=== PATIENT | male | born 1950 | race Caucasian/White ===

== ENCOUNTER 2018-11-23 07:59 | Emergency (ER) | payer OTHER ==
[~2018-11-23] VITALS: Ht 177.8 cm; Wt 95.3 kg
[~2018-11-23 07:59] MED LIST: CLON0.1D7 TD; DILT180C68 PO; HYDR25TA4 PO
[2018-11-23 08:10] VITALS: BP 148/90
[2018-11-23] MEDS ORDERED: methylPREDNISolone SOD SUCC 125 MG/2 ML VL IM ONE (08:30)
[2018-11-23] MEDS ORDERED: cefTRIAXone SOD 1,000 MG VL IM ONE (08:30)
[2018-11-23] MEDS ORDERED: diphenhdrAMINE HCL 25 MG CAP PO ONE (09:00)
== END 2018-11-23 09:50 | disposition home or self-care (01) ==
LOC: EDBD 07:59 → ER 07:59
DX: H05.011 Cellulitis of right orbit (principal); I10 Essential (primary) hypertension; M10.9 Gout, unspecified; Z79.899 Other long term (current) drug therapy
CPT/HCPCS: 70486; 96372; 99284; J0696; J2930

== ENCOUNTER 2020-01-21 14:31 | Inpatient (IN) | payer OTHER, MEDICAID ==
[~2020-01-21] VITALS: Ht 177.8 cm; Wt 83.1 kg
[2020-01-21] MEDS ORDERED: SODIUM CHLORIDE 0.9% 500 ML IV ONE (14:41)
[2020-01-21] MEDS ORDERED: CLINDAMYCIN 600MG IV 50 ML IV ONE (14:45)
[2020-01-21 16:26] LABS: Basophils # (auto) 0 10 ^3/uL (0-0.2); Basophils % (auto) 0.3 % (0.0-2.0); Eosinophils # (auto) 0 10 ^3/uL (0-0.8); Eosinophils % (auto) 0.2 % (0.0-7.0); Hematocrit 29.9 % (41.0-53.0); Hemoglobin 9.9 g/dL (13.5-17.5); Lymphocytes # (auto) 0.7 10 ^3/uL (0.4-5.4); Lymphocytes % (auto) 6.5 % (10.0-50.0); Mean Corpuscular Hemoglobin 29.7 pg (28.0-32.0); Mean Corpuscular Hgb Conc. 33.2 g/dL (32.0-36.0); Mean Corpuscular Volume 89.4 fL (80.0-100.0); Monocytes % (auto) 9.9 % (0.0-12.0); Neutrophils # (auto) 8.6 10 ^3/uL (1.6-8.6); Neutrophils % (auto) 83.1 % (37.0-80.0); Platelet Count (auto) 161 10^3/uL (140-450); Red Blood Cells 3.35 10^6/uL (4.5-5.90); Red Cell Distribution Width 15.2 % (11.8-14.3); White Blood Cell 10.4 10^3/uL (4.4-10.8)
[2020-01-21 16:42] LABS: Albumin 2.7 g/dL (3.4-5.0); BUN/Creatinine Ratio 19.5; Calcium 8.1 mg/dL (8.5-10.1); Potassium 3.5 mmol/L (3.5-5.1)
[2020-01-21 16:45] LABS: Bilirubin, Total 0.5 mg/dL (0.2-1.0); Total Protein 6.3 g/dL (6.4-8.2)
[2020-01-21] MEDS ORDERED: LORazepam 0.5 MG TAB PO PRN (17:30)
[2020-01-21] MEDS ORDERED: METOCLOPRAMIDE HCL 5MG/ml INJ 2ml VIAL IV PRN (17:30)
[2020-01-21] MEDS ORDERED: HYDROmorphone HCL 2 MG/ML VL IV PRN (17:30)
[2020-01-21] MEDS ORDERED: DOCUSATE SOD 100 MG CAP PO PRN (17:30)
[2020-01-21] MEDS ORDERED: MORPHINE SULF INJ 2 MG/ML SYRINGE 1ML IV PRN (17:30)
[2020-01-21] MEDS ORDERED: NITROGLYCERIN 0.4 MG SL TAB SL PRN (17:30)
[2020-01-21] MEDS: SODIUM CHLORIDE 0.9% 1,000 ML IV SCH (17:30)
[2020-01-21 18:17] LABS: Triglycerides 86 mg/dL (< 150)
[2020-01-21 18:21] LABS: Cholesterol 77 mg/dL (< 200); HDL Cholesterol 16 mg/dL (40-59); LDL Cholesterol 49 mg/dL (< 100)
[2020-01-21] MEDS ORDERED: VANCOMYCIN PER PHARMACY 0 MG IV SCH (19:45)
[2020-01-21 20:30] VITALS: BP 137/70
--- NOTE | 2020-01-21 20:30 | NUR ---
Telemetry admit from [facility],ELEUTERIO Tavera admitted to Telemetry unit. Patient oriented to Ivett bliss RN, unit, room, bed, and unit policies regarding patient care and visiting hours. Patient now on continuous telemetry monitoring, tele box #[id number] and telemetry reading on arrival to unit is SINUS RHYTHM AT 89BPM. Patient weighed by bedscale and encouraged to call if they need something. All questions and concerns addressed, patient verbalized understanding. PATIENT IS A/OX4, ABLE TO ANSWER ALL QUESTIONS APPROPRIATELY. IV IN PLACE TO LEFT AC 20G, INTACT AND PATENT. REDNESS AND SWELLING NOTED TO RIGHT LOWER EXTREMITY. NO OPEN AREAS NOTED.
[2020-01-21] MEDS: PIPERACILLIN-TAZOB 3.375GM 100 ML IV SCH (21:15)
[2020-01-21] MEDS: MORPHINE SULF INJ 2 MG/ML SYRINGE 1ML IV PRN (21:16)
--- NOTE | 2020-01-21 21:16 | NUR ---
PAIN PATIENT STATES HE IS HAVING 7/10 PAIN TO HIS RIGHT LEG. EDUCATED PATIENT ON AVAILABLE PAIN MEDICATION MORPHINE. PATIENT STATES HE WOULD LIKE TO TRY MORPHINE TO HELP HIS PAIN LEVEL. MORPHINE ADMINISTERED ORDERED. PATIENT TOLERATED WELL. WILL REASSESS PAIN LEVEL IN 30 MINUTES.
[2020-01-21] MEDS ORDERED: FUROSEMIDE 20 MG/2 ML VIAL IV ONE (21:45)
[2020-01-21] MEDS ORDERED: VANCOMYCIN 1GM/250ML 250 ML IV ONE (21:45)
[2020-01-21] MEDS ORDERED: hydrALAZINE HCL 20 MG/ML VL IV PRN (21:45)
[2020-01-21] MEDS ORDERED: DEXTROSE (50%) 50ML SYRG IV PRN (21:45)
--- NOTE | 2020-01-21 21:46 | NUR ---
PAIN REASSESSMENT PATIENT STATES HIS PAIN LEVEL IS NOW DOWN TO 3/10 AND HE IS "COMFORTABLE". WILL CONTINUE TO MONITOR
[2020-01-21] MEDS: InsuLIN REG 1unit/0.01ml Soln (100units/ml) SC SCH (22:00)
[2020-01-21] MEDS: AMIODARONE HCL 200 MG TAB PO SCH (22:00)
[2020-01-21] MEDS: APIXABAN 5 MG TAB PO SCH (22:25)
[2020-01-21] MEDS: ACCU-CHEK COMFORT CURVE STRIP VI SCH (22:26)
--- NOTE | 2020-01-21 22:30 | NUR ---
MED REFUSALS PATIENT REFUSED 2200 SCHEDULED AMIODARONE. PATIENT STATES HE ONLY TAKES THIS MEDICATION ONCE DAILY AND HAS ALREADY TAKEN IT EARLIER TODAY. WILL UPDATE MED REC. PATIENT ALSO REFUSED INSULIN. POC GLUCOSE 207.PATIENT STATES, "I'M NOT DIABETIC AND I'VE NEVER TAKEN INSULIN BEFORE". PATIENT ALSO STATES, "I JUST ATE A SANDWICH AND HAD SOME JUICE". PATIENT REFUSES INSULIN PER SLIDING SCALE
[2020-01-21 22:58] VITALS: BP 137/70
[2020-01-21 23:16] LABS: Urine Bacteria FEW /hpf (None Seen); Urine Blood Negative /uL (Negative); Urine Hyaline Cast FEW /lpf (0 - 2); Urine Specific Gravity 1.017 (1.001-1.035); Urine WBC <1 /hpf (0 - 3)
[2020-01-21 23:21] LABS: Alcohol, Urine < 3.0 mg/dL (0-5); Amphetamine Screen, Urine NEGATIVE (NEGATIVE); Barbiturate Scree,Urine NEGATIVE (NEGATIVE); Benzodiazephine Screen, Urine NEGATIVE (NEGATIVE); Cannabinoid Screen, Urine NEGATIVE (NEGATIVE); Cocaine Screen, Urine NEGATIVE (NEGATIVE); Opiate Scree,Urine POSITIVE (NEGATIVE); Phencyclidine Screen, Urine NEGATIVE (NEGATIVE)
[2020-01-21] MEDS ORDERED: HCTZ25T PO (23:38)
[2020-01-21] MEDS ORDERED: DILT1CAP77 PO (23:38)
[2020-01-21] MEDS ORDERED: RIVA20TA PO (23:38)
[2020-01-21] MEDS ORDERED: LABE100T4 PO (23:39)
[2020-01-21] MEDS ORDERED: CLON0.2T PO (23:39)
[2020-01-21] MEDS ORDERED: COLC1TAB3 PO (23:40)
[2020-01-21] MEDS ORDERED: AMIO200T33 PO (23:40)
--- NOTE | 2020-01-22 00:55 | NUR ---
WOUND PHOTO PHOTO OF RIGHT LOWER EXTREMITY CELLULITIS TAKEN FOR REFERENCE. NO OPEN AREAS NOTED.
[2020-01-22] MEDS: MORPHINE SULF INJ 2 MG/ML SYRINGE 1ML IV PRN ×5 (01:25→18:32)
--- NOTE | 2020-01-22 01:25 | NUR ---
PAIN PATIENT REQUESTS MORPHINE FOR PAIN LEVEL 7/10 TO RIGHT LEG. MORPHINE ADMINISTERED ORDERED BY MD. PATIENT TOLERATED WELL. WILL REASSESS PAIN LEVEL IN 30 MINUTES.
--- NOTE | 2020-01-22 01:55 | NUR ---
PAIN REASSESSMENT PATIENT RATES PAIN LEVEL AT 2/10. PATIENT RESTING COMFORTABLY IN BED, WILL CONTINUE TO MONITOR
[2020-01-22] MEDS: PIPERACILLIN-TAZOB 3.375GM 100 ML IV SCH ×2 (03:07→09:57)
[2020-01-22 05:00] VITALS: BP 109/68
--- NOTE | 2020-01-22 05:35 | NUR ---
PAIN PATIENT REQUESTS MORPHINE FOR PAIN LEVEL OF 7/10 TO RIGHT LOWER EXTREMITY. MORPHINE ADMINISTERED ORDERED BY MD. PATIENT TOLERATED WELL. WILL REASSESS PAIN IN 30 MINUTES
--- NOTE | 2020-01-22 06:05 | NUR ---
PAIN REASSESSMENT PATIENT RATES PAIN AT 4/10 NOW, STATES PAIN HAS IMPROVED AND HE IS COMFORTABLE
[2020-01-22] MEDS: FUROSEMIDE 20 MG/2 ML VIAL IV SCH ×2 (06:19→18:21)
[2020-01-22] MEDS: ACCU-CHEK COMFORT CURVE STRIP VI SCH ×4 (06:22→21:42)
[2020-01-22] MEDS: InsuLIN REG 1unit/0.01ml Soln (100units/ml) SC SCH ×4 (06:22→21:42)
[2020-01-22 06:38] LABS: Basophils # (auto) 0.1 10 ^3/uL (0-0.2); Basophils % (auto) 0.6 % (0.0-2.0); Eosinophils # (auto) 0 10 ^3/uL (0-0.8); Eosinophils % (auto) 0.3 % (0.0-7.0); Hematocrit 32.1 % (41.0-53.0); Hemoglobin 10.8 g/dL (13.5-17.5); Lymphocytes # (auto) 0.6 10 ^3/uL (0.4-5.4); Lymphocytes % (auto) 5.4 % (10.0-50.0); Mean Corpuscular Hgb Conc. 33.6 g/dL (32.0-36.0); Mean Corpuscular Volume 89.3 fL (80.0-100.0); Monocytes # (auto) 0.8 10 ^3/uL (0-1.3); Monocytes % (auto) 7.1 % (0.0-12.0); Neutrophils % (auto) 86.6 % (37.0-80.0); Platelet Count (auto) 195 10^3/uL (140-450); Red Cell Distribution Width 15.4 % (11.8-14.3); White Blood Cell 11.6 10^3/uL (4.4-10.8)
[2020-01-22 06:50] LABS: INR 1.22 (0.9-1.15); Partial Thromboplastin Time 42.4 sec (23.64-32.05)
[2020-01-22 06:57] LABS: Albumin 2.9 g/dL (3.4-5.0); Calcium 8.6 mg/dL (8.5-10.1); Magnesium 2.6 mg/dL (1.6-2.6); Potassium 3.6 mmol/L (3.5-5.1); Uric Acid 11.3 mg/dL (3.5-7.2)
--- NOTE | 2020-01-22 06:59 | NUR ---
CLOSING PATIENT RESTING COMFORTABLY IN BED. NO S/S OF DISTRESS. CALL LIGHT WITHIN REACH WILL ENDORSE CARE TO AM SHIFT RN
[2020-01-22 07:02] LABS: BUN/Creatinine Ratio 20.7
[2020-01-22 07:03] LABS: Bilirubin, Total 0.7 mg/dL (0.2-1.0); Phosphorus 3.6 mg/dL (2.5-4.90); Total Protein 6.9 g/dL (6.4-8.2)
--- NOTE | 2020-01-22 07:20 | NUR ---
Opening shift note Assumed care patient currently in bed AOx4. No s/s of distress noted. Patient denies pain at this time. Patient updated on POC an dto call for assistance as needed, patient verbalized understanding. Bed in los position, locked, call light within reach, side rails x2 up. Will continue care.
[2020-01-22 09:00] VITALS: BP 136/61
[2020-01-22] MEDS: predniSONE 5 MG TAB PO SCH (09:58)
[2020-01-22] MEDS: amLODIPine BESYLATE 5 MG TAB PO SCH (09:58)
[2020-01-22] MEDS: APIXABAN 5 MG TAB PO SCH ×2 (09:58→21:39)
[2020-01-22] MEDS: dilTIAZem 120MG ER CAP PO SCH (09:59)
[2020-01-22] MEDS: AMIODARONE HCL 200 MG TAB PO SCH (09:59)
[2020-01-22] MEDS: SODIUM CHLORIDE 0.9% 1,000 ML IV SCH ×2 (10:10→20:20)
--- NOTE | 2020-01-22 10:31 | NUR ---
reassessment of pain PATIENT RATES PAIN AT 2/10 NOW, STATES PAIN HAS IMPROVED AND HE IS COMFORTABLE.
--- NOTE | 2020-01-22 11:26 | NUR ---
WOUND CARE NOTE: Wound care in to see patient per wound care request regarding "Rt Lower Extremity Cellulitis". Bedside nurse took photograph of patient's skin issue upon admission for reference. Patient is 69 years old male admitted for RLE Cellulitis. Patient with history of Gout and Htn. Patient is resting in bed in Rm. 273B. Patient is awake, alert and oriented. Patient is in no stated pain at this time. He's self turning and repositioning and his Iain score is 22. No wound noted other than Rt lower leg edema and erythema, warm to touch,no drainage/odor noted, left open to air. Patient reported that he had experience redness and swelling in the past to his face and buttocks area but not on his legs. Patient reported that swelling and erythema has gone down compared to when he jut got here. Patient in on IV antibiotic and recommended to elevate RLE on pillows. Patient verbalized understanding. No further wound care monitoring needed at this time. RECOMMENDATION: Elevate edematous extremity on pillows, reconsult for active wound, pressure injury, Low Iain score of 12 and below. Addendum: 01/22/20 at 1632 by Yessenia Jaramillo RN Amended: Links added.
[2020-01-22 13:00] VITALS: BP 117/68
[2020-01-22] MEDS ORDERED: CLINDAMYCIN 600MG IV 50 ML IV ONE (13:15)
--- NOTE | 2020-01-22 15:01 | NUR ---
reassessment of pain PATIENT RATES PAIN AT 2/10 NOW, STATES PAIN HAS IMPROVED AND HE IS COMFORTABLE.
[2020-01-22] MEDS: PIPERACILLIN-TAZOB 2.25GM 50 ML IV SCH ×2 (16:29→21:38)
[2020-01-22 17:00] VITALS: BP 123/74
--- NOTE | 2020-01-22 19:35 | NUR ---
OPENING NOTE REPORT RECEIVED FROM DANIEL RN PATIENT IS A/OX4 RESTING COMFORTABLY IN BED. PATIENT DENIES ANY PAIN AT THIS TIME. RIGHT LOWER EXTREMITY REDNESS AND SWELLING NOTED. IV TO LEFT AC RUNNING ORDERED FLUIDS. PHYSICAL ASSESSMENT DONE-SEE INTERVENTIONS. POC DISCUSSED WITH PATIENT. CALL LIGHT WITHIN REACH.
--- NOTE | 2020-01-22 19:40 | NUR ---
AT BEDSIDE DR.L. CARMONA AT BEDSIDE DISCUSSING POC WITH PATIENT
[2020-01-22] MEDS ORDERED: VANCOMYCIN 1GM/250ML 250 ML IV ONE (20:00)
[2020-01-22 22:00] VITALS: BP 152/76
--- NOTE | 2020-01-23 00:10 | NUR ---
SPOKE WITH SPOKE WITH DR.L CARMONA. NEW ORDER FOR PATIENT TO BE TRANSFERRED TO [facility]. PER MD, THERE IS NO BED AVAILABLE TONIGHT FOR THE PATIENT
--- NOTE | 2020-01-23 02:30 | NUR ---
IV OUT FOUND PATIENT WITH BLOOD ON BED SHEETS. IV NOTED TO BE OUT. CATHETER FULLY INTACT. PATIENT STATES, "I MUST HAVE PULLED IT OUT WHILE I WAS SLEEPING".
--- NOTE | 2020-01-23 02:35 | NUR ---
BED CHANGE PATIENT GIVEN COMPLETE LINEN CHANGE
--- NOTE | 2020-01-23 02:48 | NUR ---
IV insertion IV access obtained, via clean sterile technique by inserting 20 gauge catheter at RIGHT FOREARM. IV secured properly. No trauma to site. Patient tolerated well.
[2020-01-23] MEDS: PIPERACILLIN-TAZOB 2.25GM 50 ML IV SCH ×4 (02:52→22:58)
[2020-01-23] MEDS: MORPHINE SULF INJ 2 MG/ML SYRINGE 1ML IV PRN ×4 (02:52→20:44)
--- NOTE | 2020-01-23 02:52 | NUR ---
PAIN PATIENT WOKE UP STATING HE HAS 7/10 PAIN TO RIGHT LEG. PATIENT REQUESTED MORPHINE. MORPHINE ADMINISTERED ORDERED BY MD. WILL REASSESS PAIN LEVEL IN 30 MINUTES
--- NOTE | 2020-01-23 03:22 | NUR ---
PAIN REASSESSMENT PATIENT SLEEPING COMFORTABLY. NO SIGNS OF PAIN. CALL LIGHT WITHIN REACH
[2020-01-23 05:00] VITALS: BP 137/72
[2020-01-23 05:20] LABS: Basophils # (auto) 0.1 10 ^3/uL (0-0.2); Basophils % (auto) 0.5 % (0.0-2.0); Eosinophils # (auto) 0.1 10 ^3/uL (0-0.8); Eosinophils % (auto) 0.7 % (0.0-7.0); Hematocrit 31.1 % (41.0-53.0); Hemoglobin 10.8 g/dL (13.5-17.5); Lymphocytes # (auto) 0.9 10 ^3/uL (0.4-5.4); Lymphocytes % (auto) 8.9 % (10.0-50.0); Mean Corpuscular Hemoglobin 30.6 pg (28.0-32.0); Mean Corpuscular Hgb Conc. 34.6 g/dL (32.0-36.0); Mean Corpuscular Volume 88.3 fL (80.0-100.0); Monocytes % (auto) 9.4 % (0.0-12.0); Neutrophils # (auto) 8.2 10 ^3/uL (1.6-8.6); Neutrophils % (auto) 80.5 % (37.0-80.0); Platelet Count (auto) 223 10^3/uL (140-450); Red Blood Cells 3.52 10^6/uL (4.5-5.90); Red Cell Distribution Width 15.3 % (11.8-14.3); White Blood Cell 10.2 10^3/uL (4.4-10.8)
[2020-01-23 05:35] LABS: BUN/Creatinine Ratio 25.5; Potassium 3.6 mmol/L (3.5-5.1)
[2020-01-23 05:36] LABS: Calcium 8.4 mg/dL (8.5-10.1)
--- NOTE | 2020-01-23 06:00 | NUR ---
TRANSFER PATIENT AWAKE AND ALERT. DISCUSSED WITH PATIENT THE NEW ORDER TO TRANSFER TO [facility] PER . PATIENT VERBALIZED THAT HE NEEDS TO CALL HIS MOM AND SET UP ARRANGEMENTS FOR SOMEONE TO TAKE CARE OF HER WHILE HE IS GONE. PATIENT REFUSING TO SIGN TRANSFER PAPERWORK UNTIL HE SPEAKS WITH HIS FAMILY.
[2020-01-23] MEDS: FUROSEMIDE 20 MG/2 ML VIAL IV SCH ×2 (06:29→18:18)
[2020-01-23] MEDS: CLINDAMYCIN 600MG IV 50 ML IV SCH ×3 (06:29→21:26)
[2020-01-23] MEDS: SODIUM CHLORIDE 0.9% 1,000 ML IV SCH ×2 (06:29→16:15)
[2020-01-23] MEDS: ACCU-CHEK COMFORT CURVE STRIP VI SCH ×4 (06:30→21:32)
[2020-01-23] MEDS: InsuLIN REG 1unit/0.01ml Soln (100units/ml) SC SCH ×4 (06:32→21:33)
--- NOTE | 2020-01-23 06:56 | NUR ---
CLOSING PATIENT RESTING WITH EYES CLOSED. NO S/S OF DISTRESS NOTED. CALL LIGHT WITHIN REACH. WILL ENDORSE CARE TO AM SHIFT RN
--- NOTE | 2020-01-23 07:30 | NUR ---
OPENING SHIFT NOTE Assumed care patient comfortably resting in bed AOx4, no s/s of distress/SOB noted at this moment. Patient complains of pain 7/10 to right lower extremity, will medicate per doctors orders. Bed in low position, locked, call light within reach. Patient has been instructed on plan of care for the day and to call for assistance as needed, patient verbalized understanding. Will continue care.
[2020-01-23] MEDS: predniSONE 5 MG TAB PO SCH (08:12)
[2020-01-23] MEDS: AMIODARONE HCL 200 MG TAB PO SCH (08:12)
[2020-01-23] MEDS: dilTIAZem 120MG ER CAP PO SCH (08:12)
[2020-01-23] MEDS: amLODIPine BESYLATE 5 MG TAB PO SCH (08:13)
[2020-01-23 09:00] VITALS: BP 133/77
--- NOTE | 2020-01-23 09:57 | NUR ---
off unit Patient down to radiology
--- NOTE | 2020-01-23 10:15 | NUR ---
BACK ON UNIT no s/s of distress or SOB noted upon arrival.
--- NOTE | 2020-01-23 11:00 | NUR ---
Paged extermination supervisor Instrumental Musician Paged extermination supervisor certified social workers in health care regarding Social Service consult for transfer to [facility]. Faxed required documentation to [facility]. Per Debbi, she spoke with case management manager at [facility] and awaiting Tele bed. Per Debbi she will call back once she has more information regarding the transfer.
[2020-01-23] MEDS ORDERED: DILT60TA27 PO (11:43)
--- NOTE | 2020-01-23 12:15 | NUR ---
PAIN PATIENT REQUESTS MORPHINE FOR PAIN LEVEL OF 7/10 TO RIGHT LOWER EXTREMITY. MORPHINE WILL BE ADMINISTERED ORDERED BY MD. PATIENT TOLERATED WELL. WILL REASSESS PAIN IN 30 MINUTES
--- NOTE | 2020-01-23 12:40 | NUR ---
reassessment of pain PATIENT RATES PAIN AT 2/10 NOW, STATES PAIN HAS IMPROVED AND HE IS COMFORTABLE.
--- NOTE | 2020-01-23 16:45 | NUR ---
D/C PLANNING DIRECTOR OF CONTENT AND PROGRAMMING WEEKEND, Received page from Beer Coil Cleaner Griselda with [facility] on Friday requesting clinical information and discharge plan. Place call to JEB Villalobos advising her to fax clinical information to ([phone]) and if there was any discharge plan for patient. Per JEB Villalobos patient has consults pending. Placed call back to CORY Villalobos with [facility] informing her there is no plan of discharge at the moment. Received a page from JEB Villalobos at 11:22 01/23/2020 regarding transfer order to [facility]. Placed call to [facility] spoke to CORY Flores. Per CORY Flores she will contact [facility] and ask if patient needs to be tested for COVID-19 before transferring. CORY Flores requested any recent clinical information. Placed follow up call to JEB Villalobos to provide her with transfer updates and requesting her to fax any recent clinical information to [facility].
[2020-01-23 17:00] VITALS: BP 116/59
--- NOTE | 2020-01-23 17:05 | NUR ---
reassessment of pain PATIENT RATES PAIN AT 2/10 NOW, STATES PAIN HAS IMPROVED AND HE IS COMFORTABLE.
--- NOTE | 2020-01-23 19:30 | NUR ---
Opening shift note Assumed care of patient. Patient A&Ox4, respirations even and non-labored with no s/s of distress. Discussed POC with patient who verbalized understanding. IV patent, intact and running NS at 100. Bed lowered/locked with 2 side rails up. Call light within reach, will continue to monitor.
[2020-01-23] MEDS ORDERED: VANCOMYCIN 1GM/250ML 250 ML IV ONE (20:00)
[2020-01-23 20:28] LABS: Urine WBC None Seen /hpf (0 - 3)
--- NOTE | 2020-01-23 20:30 | NUR ---
IV insertion Inserted IV to left FA, 22 g, one attempt. Patient tolerated well.
[2020-01-23 20:38] LABS: Urine Bacteria NONE SEEN /hpf (None Seen); Urine Blood Negative /uL (Negative)
--- NOTE | 2020-01-23 20:44 | NUR ---
Pain Patient c/o 7/10 right leg pain. Administered 2 mg morphine per EMAR. Will continue to monitor.
[2020-01-23 20:50] LABS: Protein, Urine 11.3 mg/dL (0.0-11.9)
--- NOTE | 2020-01-23 21:14 | NUR ---
Pain reassessed Patient stated 3/10 right leg pain. The patient stated that his pain was very tolerable at this time. Will continue to monitor.
[2020-01-23 22:00] VITALS: BP 141/74
--- NOTE | 2020-01-24 01:25 | NUR ---
Patient complained of right leg pain, PRN pain med given
[2020-01-24] MEDS: MORPHINE SULF INJ 2 MG/ML SYRINGE 1ML IV PRN ×6 (01:27→23:39)
--- NOTE | 2020-01-24 01:58 | NUR ---
Pain Reassessment Patient stated pain decreased to 2/10, position in a comfortable position, will continue to monitor
[2020-01-24] MEDS: SODIUM CHLORIDE 0.9% 1,000 ML IV SCH ×3 (03:26→21:42)
[2020-01-24] MEDS: PIPERACILLIN-TAZOB 2.25GM 50 ML IV SCH ×2 (03:26→09:39)
[2020-01-24 04:50] VITALS: BP 124/77
--- NOTE | 2020-01-24 05:30 | NUR ---
Requested Imaging CD and placed it in chart/envelope
[2020-01-24] MEDS: CLINDAMYCIN 600MG IV 50 ML IV SCH ×3 (05:43→22:12)
[2020-01-24] MEDS: FUROSEMIDE 20 MG/2 ML VIAL IV SCH ×2 (05:45→17:38)
[2020-01-24 05:46] LABS: Basophils # (auto) 0 10 ^3/uL (0-0.2); Basophils % (auto) 0.4 % (0.0-2.0); Eosinophils # (auto) 0.1 10 ^3/uL (0-0.8); Eosinophils % (auto) 0.9 % (0.0-7.0); Hematocrit 34.4 % (41.0-53.0); Hemoglobin 11.6 g/dL (13.5-17.5); Lymphocytes # (auto) 1.1 10 ^3/uL (0.4-5.4); Lymphocytes % (auto) 11.5 % (10.0-50.0); Mean Corpuscular Hemoglobin 30.2 pg (28.0-32.0); Mean Corpuscular Hgb Conc. 33.8 g/dL (32.0-36.0); Mean Corpuscular Volume 89.3 fL (80.0-100.0); Monocytes # (auto) 0.8 10 ^3/uL (0-1.3); Monocytes % (auto) 8.1 % (0.0-12.0); Neutrophils # (auto) 7.7 10 ^3/uL (1.6-8.6); Neutrophils % (auto) 79.1 % (37.0-80.0); Platelet Count (auto) 254 10^3/uL (140-450); Red Blood Cells 3.85 10^6/uL (4.5-5.90); Red Cell Distribution Width 15.6 % (11.8-14.3); White Blood Cell 9.7 10^3/uL (4.4-10.8)
[2020-01-24] MEDS: InsuLIN REG 1unit/0.01ml Soln (100units/ml) SC SCH ×4 (05:56→21:42)
[2020-01-24] MEDS: ACCU-CHEK COMFORT CURVE STRIP VI SCH ×4 (05:56→21:42)
--- NOTE | 2020-01-24 05:59 | NUR ---
Pain Patient c/o 7/10 right leg pain. Administered 2 mg morphine per EMAR. Will continue to monitor.
[2020-01-24 06:03] LABS: Potassium 3.7 mmol/L (3.5-5.1)
[2020-01-24 06:08] LABS: Calcium 8.8 mg/dL (8.5-10.1)
--- NOTE | 2020-01-24 06:20 | NUR ---
Pain reassessed Patient resting with eyes closed, respirations even and non-labored with no s/s of distress. Will continue to monitor.
--- NOTE | 2020-01-24 07:10 | NUR ---
Opening Shift Note: Assumed care of patient, awake and alert. No S/S of distress/SOB. Patient states generalized body pain. Patient educated on medication management. Bed in lowest locked position, side rails up x2, call light within reach. Patient instructed on POC and to call for assist PRN, will continue to monitor for changes Q1hr and PRN.
[2020-01-24 08:00] VITALS: BP 138/81
[2020-01-24] MEDS: dilTIAZem 120MG ER CAP PO SCH (09:39)
[2020-01-24] MEDS: predniSONE 5 MG TAB PO SCH (09:39)
[2020-01-24] MEDS: amLODIPine BESYLATE 5 MG TAB PO SCH (09:40)
[2020-01-24] MEDS: AMIODARONE HCL 200 MG TAB PO SCH (09:40)
[2020-01-24 12:00] VITALS: BP 134/73
--- NOTE | 2020-01-24 12:36 | NUR ---
1230 01/24/20 I contacted [facility] and spoke with Brenda-requested to speak with Telemarketing Manager Hellen to request inpatient authorization and to ask for an update on the status of the transfer to [facility]. Per Brenda Telemarketing Manager Hellen will have to give me a call back.
--- NOTE | 2020-01-24 12:48 | NUR ---
1240 01/24/20 I spoke with [facility] Video System Repairer Hellen to request that authorization be provided for patient's admission and continued stay. Per Hellen, inpatient stay is authorized with number [id number]. Per Hellen she is going to call [facility] to check on bed availability and will give me a call back.
[2020-01-24] MEDS: PIPERACILLIN-TAZOB 3.375GM 100 ML IV SCH ×2 (14:53→20:57)
[2020-01-24 16:55] VITALS: BP 126/74
[2020-01-24] MEDS ORDERED: VANCOMYCIN 1GM/250ML 250 ML IV SCH (20:00)
--- NOTE | 2020-01-24 21:00 | NUR ---
Per Dr. Cole Newman orders, COVID swab was collected and delivered to lab
[2020-01-24 22:00] VITALS: BP 134/77
--- NOTE | 2020-01-25 01:45 | NUR ---
Recieved call from case therapist Beckie from [facility]. Patient has bed, room 189, report to be called to ext. [phone]
--- NOTE | 2020-01-25 02:15 | NUR ---
Called Beckie back, updated her on in house COVID test. Per Beckie patient does not need resulted covid test for transport.
[2020-01-25] MEDS: PIPERACILLIN-TAZOB 3.375GM 100 ML IV SCH ×2 (02:46→08:44)
--- NOTE | 2020-01-25 02:54 | NUR ---
Discharge photo taken of right lower extremity.
--- NOTE | 2020-01-25 03:30 | NUR ---
PT CARE RESUMED REPORT RECEIVED FROM ELLIOT RN, PT CURRENTLY AWAKE, AXOX4, ON RA, BREATHING EVEN AND UNLABORED, NO DISTRESS NOTED, PT UPDATED ON POC, AWARE OF PENDING TRANSFER TO [facility], IV PATENT AND BENIGN TO LEFT FA 22G, RIGHT FA 20G IV DISCONTINUED, LEAKING NOTED, NO C/O PAIN TO SITE, RIGHT LOWER EXTREMITY RED AND EDEMA NOTED, LOWER EXTREMITY ELEVATED USING BED SETTINGS, CALL LIGHT WITHIN REACH, CONT CARE
--- NOTE | 2020-01-25 03:32 | NUR ---
CLOSING NOTE: Patient sleeping in bed. No S/S of pain, distress or SOB at this time. Care endorsed.
[2020-01-25] MEDS: MORPHINE SULF INJ 2 MG/ML SYRINGE 1ML IV PRN ×2 (04:01→08:45)
[2020-01-25 05:00] VITALS: BP 139/89
[2020-01-25 05:44] LABS: Hematocrit 38.3 % (41.0-53.0); Hemoglobin 13.1 g/dL (13.5-17.5); Mean Corpuscular Hemoglobin 30.2 pg (28.0-32.0); Mean Corpuscular Hgb Conc. 34.3 g/dL (32.0-36.0); Mean Corpuscular Volume 88.3 fL (80.0-100.0); Platelet Count (auto) 308 10^3/uL (140-450); Red Blood Cells 4.34 10^6/uL (4.5-5.90); Red Cell Distribution Width 15.3 % (11.8-14.3); White Blood Cell 10.3 10^3/uL (4.4-10.8)
--- NOTE | 2020-01-25 05:50 | NUR ---
CALLED [facility] TO ARRANGE TRANSPORTATION SPOKE WITH ESTEVAN
[2020-01-25 05:53] VITALS: BP 139/89
[2020-01-25 05:59] LABS: Basophils % (manual) 0 (0.0-2.0); Blast Cells 0; Eosinophils % (manual) 0 (0-7); Promyelocytes % 0; Reactive Lymphocytes 0
[2020-01-25 06:07] LABS: Calcium 9.3 mg/dL (8.5-10.1); Potassium 3.7 mmol/L (3.5-5.1)
[2020-01-25 06:10] LABS: BUN/Creatinine Ratio 29.1
[2020-01-25 06:35] LABS: Band Neutrophils % (manual) 3; Lymphocytes % (manual) 24 (10.0-50.0); Metamyelocytes % 1; Monocytes % (manual) 7 (0-12); Myelocytes % 2
[2020-01-25] MEDS: CLINDAMYCIN 600MG IV 50 ML IV SCH (06:49)
[2020-01-25] MEDS: FUROSEMIDE 20 MG/2 ML VIAL IV SCH (06:50)
[2020-01-25] MEDS: InsuLIN REG 1unit/0.01ml Soln (100units/ml) SC SCH (07:00)
[2020-01-25] MEDS: ACCU-CHEK COMFORT CURVE STRIP VI SCH (07:02)
[2020-01-25 08:00] VITALS: BP 140/87
[2020-01-25] MEDS: SODIUM CHLORIDE 0.9% 1,000 ML IV SCH (08:15)
--- NOTE | 2020-01-25 08:15 | NUR ---
CALLED AND GAVE TO REPORT TO [facility] SPOKE WITH GIRMA RUSS, [facility] WILL ARRIVE AT 0900, PATIENT BEING TRANSFERRED TO ROOM 189, CONT CARE
[2020-01-25 08:30] VITALS: BP 140/87
[2020-01-25] MEDS: predniSONE 5 MG TAB PO SCH (08:44)
[2020-01-25] MEDS: amLODIPine BESYLATE 5 MG TAB PO SCH (08:45)
[2020-01-25] MEDS: AMIODARONE HCL 200 MG TAB PO SCH (08:46)
[2020-01-25] MEDS: dilTIAZem 120MG ER CAP PO SCH (08:47)
--- NOTE | 2020-01-25 08:55 | NUR ---
[facility] AT BEDSIDE REPORT GIVEN TO EDUARDO (EMT)
--- NOTE | 2020-01-25 09:16 | NUR ---
Pt being trans to another hospital Order obtained for transfer of ELEUTERIO ARENAS to [facility] . Report called/given to Lanny RUSS. Report given to EMS transport team (Benjamin). Medication reconciliation form completed and copy given to patient. Transported via gurney along with copied chart and imaging films and all personal belongings. No distress noted on time of departure. Family not notified as patient lives alone with his mother, he states he will notify her of destination and room number, patient of discharge instructions and verbalized understanding.
== END 2020-01-25 09:00 | disposition short-term general hospital (02) | DRG 602 ==
LOC: ER 14:31 → EDBD 14:31 → TELE 14:32 → TELE-WESTW 20:18
PROVIDERS: ADMIT Hospitalist; ATTEND Internal Medicine
DX: L03.115 Cellulitis of right lower limb (principal); E43 Unspecified severe protein-calorie malnutrition; N17.0 Acute kidney failure with tubular necrosis; E87.1 Hypo-osmolality and hyponatremia; I16.9 Hypertensive crisis, unspecified; L02.415 Cutaneous abscess of right lower limb; D64.9 Anemia, unspecified; E11.22 Type 2 diabetes mellitus with diabetic chronic kidney disease; E66.9 Obesity, unspecified; F41.9 Anxiety disorder, unspecified; I12.9 Hypertensive chronic kidney disease with stage 1 through stage 4 chronic kidney disease, or unspecified chronic kidney disease; I48.91 Unspecified atrial fibrillation; M10.9 Gout, unspecified; D63.1 Anemia in chronic kidney disease; N18.9 Chronic kidney disease, unspecified; Z72.0 Tobacco use; Z79.899 Other long term (current) drug therapy; Z98.49 Cataract extraction status, unspecified eye; Z90.49 Acquired absence of other specified parts of digestive tract; Z79.01 Long term (current) use of anticoagulants; Z68.27 Body mass index [BMI] 27.0-27.9, adult; Z11.59 Encounter for screening for other viral diseases
CPT/HCPCS: 36415; 73700; 76775; 76881; 80048; 80053; 80061; 80202; 80307; 81001; 82550; 82570; 82962; 83036; 83735; 84100; 84156; 84300; 84484; 84550; 85007; 85025; 85027; 85610; 85652; 85730; 87040; 93971; 96365; 96366; G0378; J2543; J3490

== ENCOUNTER 2021-11-20 08:09 | Inpatient (IN) | payer OTHER, MEDICAID ==
[~2021-11-20] VITALS: Ht 188 cm; Wt 80.6 kg
[~2021-11-20 08:09] MED LIST changes: +AMIO200T33 PO; -CLON0.1D7 TD; +CLON0.2T PO; +COLC1TAB3 PO; -DILT180C68 PO; +DILT60TA PO; -HYDR25TA4 PO; +HYDR25TA5 PO; +LABE100T4 PO; +RIVA20TA PO
[2021-11-20 09:38] LABS: Hematocrit 37.8 % (41.0-53.0); Hemoglobin 12.8 g/dL (13.5-17.5); Mean Corpuscular Hemoglobin 30.3 pg (28.0-32.0); Mean Corpuscular Hgb Conc. 33.9 g/dL (32.0-36.0); Mean Corpuscular Volume 89.4 fL (80.0-100.0); Red Blood Cells 4.22 10^6/uL (4.5-5.90); Red Cell Distribution Width 15.3 % (11.8-14.3); White Blood Cell 26.3 10^3/uL (4.4-10.8)
[2021-11-20 09:41] LABS: Basophils % (manual) 0 (0.0-2.0); Blast Cells 0; Eosinophils % (manual) 0 (0-7); Metamyelocytes % 0; Myelocytes % 0; Promyelocytes % 0; Reactive Lymphocytes 0
[2021-11-20 10:08] LABS: Calcium 9.2 mg/dL (8.5-10.1); Chloride 96 mmol/L (98-107); Potassium 4.3 mmol/L (3.5-5.1); Sodium 131 mmol/L (136-145)
[2021-11-20 10:20] LABS: Alanine Aminotransferase 170 U/L (16-61); Alkaline Phosphatase 99 U/L (45-117); Anion Gap 14 (5-15); Aspartate Aminotransferase 356 U/L (15-37); BUN/Creatinine Ratio 31.8; Bilirubin, Total 1.1 mg/dL (0.2-1.0); Blood Alcohol < 3.0 mg/dL (0-5); Carbon Dioxide 21 mmol/L (21-32); GFR African American 25 mL/min; GFR Non-African American 21 mL/min; Glucose 123 mg/dL (74-106); Total Protein 8.2 g/dL (6.4-8.2)
[2021-11-20 10:35] LABS: Blood Urea Nitrogen 101 mg/dL (7-18)
[2021-11-20] MEDS ORDERED: ACETAMINOPHEN 325 MG TAB PO ONE (12:45)
[2021-11-20] MEDS ORDERED: cefTRIAXone 1GM/50ML D5W 50 ML IV ONE (12:45)
[2021-11-20] MEDS ORDERED: AZITHROMYCIN 500MG/ 250ML 250 ML IV ONE (12:45)
[2021-11-20 12:57] LABS: Band Neutrophils % (manual) 13; Lymphocytes % (manual) 1 (10.0-50.0); Monocytes % (manual) 11 (0-12)
[2021-11-20 13:50] LABS: Alcohol, Urine < 3.0 mg/dL (0-10); Amphetamine Screen, Urine NEGATIVE (NEGATIVE); Barbiturate Scree,Urine NEGATIVE (NEGATIVE); Benzodiazephine Screen, Urine POSITIVE (NEGATIVE); Cannabinoid Screen, Urine NEGATIVE (NEGATIVE); Cocaine Screen, Urine NEGATIVE (NEGATIVE); Phencyclidine Screen, Urine NEGATIVE (NEGATIVE)
[2021-11-20 13:51] LABS: Urine Bacteria NONE SEEN /hpf (None Seen); Urine Blood 1+ /uL (Negative); Urine Hyaline Cast FEW /lpf (0 - 2); Urine Specific Gravity 1.025 (1.001-1.035); Urine WBC 1 /hpf (0 - 3)
[2021-11-20] MEDS ORDERED: DEXTROSE (50%) 50ML SYRG IV PRN (14:00)
[2021-11-20] MEDS ORDERED: MORPHINE SULFATE INJECTION 2 MG/ML SYRG IV PRN (14:00)
[2021-11-20] MEDS ORDERED: PROMETHAZINE HCL 25 MG/ML 1ML IV PRN (14:00)
[2021-11-20] MEDS ORDERED: NITROGLYCERIN 0.4 MG SL TAB SL PRN (14:00)
[2021-11-20 14:03] LABS: Opiate Scree,Urine POSITIVE (NEGATIVE)
[2021-11-20] MEDS: PIPERACILLIN-TAZOB 3.375GM 100 ML IV SCH ×2 (14:42→21:53)
[2021-11-20] MEDS: D5W/SOD CHLO 0.9% 1,000 ML IV SCH (15:31)
[2021-11-20] MEDS: ACCU-CHEK COMFORT CURVE STRIP VI SCH (17:57)
[2021-11-20] MEDS: InsuLIN REG 1unit/0.01ml Soln (100units/ml) SC SCH (17:57)
[2021-11-20 18:20] VITALS: BP 123/53
[2021-11-20] MEDS: methylPREDNISolone SOD SUCC 40 MG/ML VL IV SCH (21:53)
[2021-11-20 21:58] VITALS: BP 149/67
[2021-11-21] MEDS: InsuLIN REG 1unit/0.01ml Soln (100units/ml) SC SCH ×4 (00:55→17:46)
[2021-11-21] MEDS: ACCU-CHEK COMFORT CURVE STRIP VI SCH ×4 (01:00→17:20)
[2021-11-21 05:00] VITALS: BP 150/83
[2021-11-21] MEDS: D5W/SOD CHLO 0.9% 1,000 ML IV SCH ×3 (05:10→14:00)
[2021-11-21] MEDS: PIPERACILLIN-TAZOB 3.375GM 100 ML IV SCH ×3 (06:16→22:10)
[2021-11-21 07:04] LABS: Basophils # (auto) 0 10 ^3/uL (0-0.2); Basophils % (auto) 0.5 % (0.0-2.0); Eosinophils # (auto) 0 10 ^3/uL (0-0.8); Hematocrit 31.1 % (41.0-53.0); Lymphocytes # (auto) 0.3 10 ^3/uL (0.4-5.4); Lymphocytes % (auto) 3.1 % (10.0-50.0); Mean Corpuscular Hemoglobin 31.3 pg (28.0-32.0); Mean Corpuscular Hgb Conc. 35.4 g/dL (32.0-36.0); Mean Corpuscular Volume 88.5 fL (80.0-100.0); Monocytes # (auto) 0.4 10 ^3/uL (0-1.3); Neutrophils # (auto) 7.7 10 ^3/uL (1.6-8.6); Neutrophils % (auto) 91.4 % (37.0-80.0); Red Blood Cells 3.51 10^6/uL (4.5-5.90); Red Cell Distribution Width 15.7 % (11.8-14.3); White Blood Cell 8.4 10^3/uL (4.4-10.8)
[2021-11-21 07:12] LABS: Calcium 8.7 mg/dL (8.5-10.1); Potassium 3.5 mmol/L (3.5-5.1)
[2021-11-21 07:16] LABS: BUN/Creatinine Ratio 40.8
[2021-11-21 07:20] LABS: Bilirubin, Total 0.8 mg/dL (0.2-1.0); Total Protein 6.4 g/dL (6.4-8.2)
[2021-11-21 09:00] VITALS: BP 158/94
[2021-11-21] MEDS: methylPREDNISolone SOD SUCC 40 MG/ML VL IV SCH ×2 (09:05→22:10)
[2021-11-21] MEDS ORDERED: ENOXAPARIN SOD 40 MG/0.4 ML SYRINGE SC SCH (10:00)
[2021-11-21] MEDS ORDERED: FAMOTIDINE (10MG/ML) 2ML VL IV SCH (10:00)
[2021-11-21 13:00] VITALS: BP 162/92
[2021-11-21] MEDS ORDERED: ALBUTEROL SULF 2.5 MG/0.5ML(0.5%) NEB SOLN NEB PRN (14:15)
[2021-11-21 17:00] VITALS: BP 129/83
[2021-11-21 21:03] VITALS: BP 129/83
[2021-11-21 22:00] VITALS: BP 154/90
[2021-11-21] MEDS: ATORVASTATIN 20 MG TAB PO SCH (22:11)
[2021-11-22] MEDS: ACCU-CHEK COMFORT CURVE STRIP VI SCH ×4 (00:26→17:46)
[2021-11-22] MEDS: InsuLIN REG 1unit/0.01ml Soln (100units/ml) SC SCH ×4 (00:27→17:54)
[2021-11-22 05:00] VITALS: BP 64/89
[2021-11-22] MEDS: PIPERACILLIN-TAZOB 3.375GM 100 ML IV SCH ×3 (06:22→23:30)
[2021-11-22] MEDS ORDERED: SODIUM CHLORIDE 0.9% 1,000 ML IV SCH (07:15)
[2021-11-22] MEDS: ASPirin 81 mg TAB PO SCH (09:41)
[2021-11-22] MEDS: methylPREDNISolone SOD SUCC 40 MG/ML VL IV SCH (09:41)
[2021-11-22] MEDS: FAMOTIDINE 20 MG TAB PO SCH (09:43)
[2021-11-22] MEDS: AMIODARONE HCL 200 MG TAB PO SCH (09:43)
[2021-11-22 09:46] LABS: BUN/Creatinine Ratio 40.5; Calcium 9.4 mg/dL (8.5-10.1); Potassium 3.1 mmol/L (3.5-5.1)
[2021-11-22] MEDS ORDERED: COLCHICINE 0.6 MG CAP PO SCH (10:00)
[2021-11-22] MEDS ORDERED: dilTIAZem HCL 60 MG TAB PO SCH (10:00)
[2021-11-22 15:05] LABS: Folate (Folic Acid) 20.99 ng/mL (5.38-24)
[2021-11-22] MEDS: POTASSIUM CHL 10MEQ/50ML 50 ML IV SCH ×4 (15:30→22:25)
[2021-11-22] MEDS: SOD CHL 0.45% 1,000 ML IV SCH ×2 (15:43→22:23)
[2021-11-22] MEDS: RIVAROXABAN 20 MG TAB PO SCH (17:54)
[2021-11-22] MEDS ORDERED: POTASSIUM CHL 10MEQ/50ML 50 ML IV ONE (22:22)
[2021-11-22] MEDS: ATORVASTATIN 20 MG TAB PO SCH (22:25)
[2021-11-22 23:14] LABS: Cholesterol 135 mg/dL (< 200)
[2021-11-22 23:16] LABS: HDL Cholesterol 26 mg/dL (40-59); LDL Cholesterol 100 mg/dL (< 100); Triglycerides 119 mg/dL (< 150)
[2021-11-23] MEDS: ACCU-CHEK COMFORT CURVE STRIP VI SCH ×4 (00:14→18:00)
[2021-11-23] MEDS: HALOPERIDOL LACTATE 5 MG/ML INJ VIAL IM PRN ×2 (01:12→11:46)
[2021-11-23] MEDS: InsuLIN REG 1unit/0.01ml Soln (100units/ml) SC SCH ×4 (06:00→18:00)
[2021-11-23] MEDS: PIPERACILLIN-TAZOB 3.375GM 100 ML IV SCH ×3 (06:39→22:09)
[2021-11-23 06:48] LABS: Potassium 3.3 mmol/L (3.5-5.1)
[2021-11-23 07:03] LABS: BUN/Creatinine Ratio 38.2; Magnesium 2.3 mg/dL (1.6-2.6)
[2021-11-23 07:06] LABS: RPR Non Reactive (Non Reactive)
[2021-11-23] MEDS: SOD CHL 0.45% 1,000 ML IV SCH ×2 (09:00→18:37)
[2021-11-23] MEDS: FAMOTIDINE 20 MG TAB PO SCH (10:00)
[2021-11-23] MEDS: AMIODARONE HCL 200 MG TAB PO SCH (10:00)
[2021-11-23] MEDS: ASPirin 81 mg TAB PO SCH (10:00)
[2021-11-23] MEDS: COLCHICINE 0.6 MG CAP PO SCH (10:00)
[2021-11-23] MEDS ORDERED: POTASSIUM CHL 20 Meq TABLET PO ONE (10:30)
[2021-11-23 10:54] VITALS: BP 153/89
[2021-11-23] MEDS: RIVAROXABAN 20 MG TAB PO SCH (18:00)
[2021-11-23 20:00] VITALS: BP 162/91
[2021-11-23] MEDS: ATORVASTATIN 20 MG TAB PO SCH (22:09)
[2021-11-24] MEDS: ACCU-CHEK COMFORT CURVE STRIP VI SCH ×5 (01:26→21:34)
[2021-11-24] MEDS: HALOPERIDOL LACTATE 5 MG/ML INJ VIAL IM PRN ×3 (02:48→18:45)
[2021-11-24] MEDS: SOD CHL 0.45% 1,000 ML IV SCH ×2 (05:00→15:00)
[2021-11-24] MEDS: InsuLIN REG 1unit/0.01ml Soln (100units/ml) SC SCH ×5 (06:00→20:40)
[2021-11-24] MEDS: PIPERACILLIN-TAZOB 3.375GM 100 ML IV SCH ×3 (06:12→21:35)
[2021-11-24 09:00] VITALS: BP 137/89
[2021-11-24 09:15] LABS: Hematocrit 36.3 % (41.0-53.0); Hemoglobin 12.3 g/dL (13.5-17.5); Mean Corpuscular Hemoglobin 30.4 pg (28.0-32.0); Mean Corpuscular Hgb Conc. 33.9 g/dL (32.0-36.0); Mean Corpuscular Volume 89.5 fL (80.0-100.0); Red Blood Cells 4.06 10^6/uL (4.5-5.90); Red Cell Distribution Width 15.7 % (11.8-14.3); White Blood Cell 22.5 10^3/uL (4.4-10.8)
[2021-11-24 09:25] LABS: Basophils % (manual) 0 (0.0-2.0); Blast Cells 0; Promyelocytes % 0; Reactive Lymphocytes 0
[2021-11-24 09:35] LABS: BUN/Creatinine Ratio 30.1; Calcium 8.8 mg/dL (8.5-10.1)
[2021-11-24] MEDS: AMIODARONE HCL 200 MG TAB PO SCH (09:35)
[2021-11-24] MEDS: COLCHICINE 0.6 MG CAP PO SCH (09:35)
[2021-11-24] MEDS: FAMOTIDINE 20 MG TAB PO SCH (09:36)
[2021-11-24] MEDS: ASPirin 81 mg TAB PO SCH (09:37)
[2021-11-24 11:10] LABS: Band Neutrophils % (manual) 8; Eosinophils % (manual) 1 (0-7); Lymphocytes % (manual) 7 (10.0-50.0); Metamyelocytes % 1; Monocytes % (manual) 8 (0-12); Myelocytes % 1
[2021-11-24 13:00] VITALS: BP 149/87
[2021-11-24 17:00] VITALS: BP 164/97
[2021-11-24] MEDS: RIVAROXABAN 20 MG TAB PO SCH (17:53)
[2021-11-24 20:50] VITALS: BP 164/97
[2021-11-24 21:48] VITALS: BP 157/88
[2021-11-24] MEDS: ATORVASTATIN 20 MG TAB PO SCH (22:00)
[2021-11-25] MEDS: SOD CHL 0.45% 1,000 ML IV SCH ×2 (01:00→10:23)
[2021-11-25 04:06] VITALS: BP 137/82
[2021-11-25] MEDS: ACCU-CHEK COMFORT CURVE STRIP VI SCH ×3 (06:00→17:47)
[2021-11-25] MEDS: InsuLIN REG 1unit/0.01ml Soln (100units/ml) SC SCH ×3 (06:00→17:46)
[2021-11-25] MEDS: PIPERACILLIN-TAZOB 3.375GM 100 ML IV SCH ×3 (06:59→22:05)
[2021-11-25] MEDS: HALOPERIDOL LACTATE 5 MG/ML INJ VIAL IM PRN (08:16)
[2021-11-25 09:00] VITALS: BP 147/80
[2021-11-25] MEDS: ASPirin 81 mg TAB PO SCH (10:22)
[2021-11-25] MEDS: COLCHICINE 0.6 MG CAP PO SCH (10:22)
[2021-11-25] MEDS: AMIODARONE HCL 200 MG TAB PO SCH (10:23)
[2021-11-25] MEDS: FAMOTIDINE 20 MG TAB PO SCH (10:23)
[2021-11-25 13:00] VITALS: BP 127/79
[2021-11-25 17:00] VITALS: BP 142/81
[2021-11-25] MEDS: RIVAROXABAN 20 MG TAB PO SCH (17:59)
[2021-11-25 20:02] LABS: Hematocrit 39.4 % (41.0-53.0); Hemoglobin 13.4 g/dL (13.5-17.5); Mean Corpuscular Hemoglobin 30.5 pg (28.0-32.0); Mean Corpuscular Hgb Conc. 34.1 g/dL (32.0-36.0); Mean Corpuscular Volume 89.5 fL (80.0-100.0); White Blood Cell 16.2 10^3/uL (4.4-10.8)
[2021-11-25 20:14] LABS: Basophils % (manual) 0 (0.0-2.0); Blast Cells 0; Metamyelocytes % 0; Promyelocytes % 0; Reactive Lymphocytes 0
[2021-11-25 20:20] LABS: BUN/Creatinine Ratio 24.3; Calcium 8.9 mg/dL (8.5-10.1); Potassium 3.4 mmol/L (3.5-5.1)
[2021-11-25 21:17] LABS: Band Neutrophils % (manual) 10; Eosinophils % (manual) 1 (0-7); Lymphocytes % (manual) 12 (10.0-50.0); Monocytes % (manual) 10 (0-12); Myelocytes % 2
[2021-11-25 22:00] VITALS: BP 130/73
[2021-11-25] MEDS: ATORVASTATIN 20 MG TAB PO SCH (22:05)
[2021-11-26] MEDS: ACCU-CHEK COMFORT CURVE STRIP VI SCH ×4 (01:36→17:36)
[2021-11-26 05:00] VITALS: BP 140/74
[2021-11-26] MEDS: InsuLIN REG 1unit/0.01ml Soln (100units/ml) SC SCH ×4 (05:54→17:36)
[2021-11-26] MEDS: PIPERACILLIN-TAZOB 3.375GM 100 ML IV SCH ×3 (05:54→22:22)
[2021-11-26 06:32] LABS: BUN/Creatinine Ratio 26.1; Calcium 8.5 mg/dL (8.5-10.1); Potassium 3.5 mmol/L (3.5-5.1)
[2021-11-26 06:40] LABS: Hematocrit 35.3 % (41.0-53.0); Hemoglobin 12.2 g/dL (13.5-17.5); Mean Corpuscular Hgb Conc. 34.6 g/dL (32.0-36.0); Mean Corpuscular Volume 89.6 fL (80.0-100.0); Red Blood Cells 3.94 10^6/uL (4.5-5.90); Red Cell Distribution Width 15.9 % (11.8-14.3); White Blood Cell 13.9 10^3/uL (4.4-10.8)
[2021-11-26 07:01] LABS: Basophils % (manual) 0 (0.0-2.0)
[2021-11-26 07:02] LABS: Blast Cells 0; Promyelocytes % 0; Reactive Lymphocytes 0
[2021-11-26 09:00] VITALS: BP 127/60
[2021-11-26] MEDS: ASPirin 81 mg TAB PO SCH (09:19)
[2021-11-26] MEDS: FAMOTIDINE 20 MG TAB PO SCH (09:19)
[2021-11-26] MEDS: COLCHICINE 0.6 MG CAP PO SCH (09:19)
[2021-11-26] MEDS: AMIODARONE HCL 200 MG TAB PO SCH (09:22)
[2021-11-26 09:51] LABS: Band Neutrophils % (manual) 3; Eosinophils % (manual) 1 (0-7); Lymphocytes % (manual) 19 (10.0-50.0); Metamyelocytes % 2; Monocytes % (manual) 8 (0-12); Myelocytes % 2
[2021-11-26 13:00] VITALS: BP 156/92
[2021-11-26 17:00] VITALS: BP 134/97
[2021-11-26] MEDS: RIVAROXABAN 20 MG TAB PO SCH (17:36)
[2021-11-26] MEDS: ACETAMINOPHEN 325 MG TAB PO PRN (21:50)
[2021-11-26] MEDS: ATORVASTATIN 20 MG TAB PO SCH (21:50)
[2021-11-26 22:00] VITALS: BP 141/72
[2021-11-27 05:00] VITALS: BP 145/89
[2021-11-27] MEDS: PIPERACILLIN-TAZOB 3.375GM 100 ML IV SCH ×2 (05:34→13:41)
[2021-11-27] MEDS: InsuLIN REG 1unit/0.01ml Soln (100units/ml) SC SCH ×4 (05:35→17:30)
[2021-11-27] MEDS: ACCU-CHEK COMFORT CURVE STRIP VI SCH ×4 (06:00→17:30)
[2021-11-27 07:33] LABS: Hemoglobin 12.4 g/dL (13.5-17.5); Mean Corpuscular Hemoglobin 30.7 pg (28.0-32.0); Mean Corpuscular Hgb Conc. 34.4 g/dL (32.0-36.0); Mean Corpuscular Volume 89.3 fL (80.0-100.0); Red Blood Cells 4.03 10^6/uL (4.5-5.90); Red Cell Distribution Width 16.3 % (11.8-14.3); White Blood Cell 10.9 10^3/uL (4.4-10.8)
[2021-11-27 07:49] LABS: BUN/Creatinine Ratio 20.1; Potassium 3.6 mmol/L (3.5-5.1)
[2021-11-27 07:50] LABS: Band Neutrophils % (manual) 0; Basophils % (manual) 0 (0.0-2.0); Blast Cells 0; Myelocytes % 0
[2021-11-27 08:00] VITALS: BP 139/82
[2021-11-27 08:13] LABS: Eosinophils % (manual) 1 (0-7); Lymphocytes % (manual) 12 (10.0-50.0); Metamyelocytes % 1; Monocytes % (manual) 24 (0-12); Promyelocytes % 2; Reactive Lymphocytes 1
[2021-11-27] MEDS: ASPirin 81 mg TAB PO SCH (09:21)
[2021-11-27] MEDS: FAMOTIDINE 20 MG TAB PO SCH (09:22)
[2021-11-27] MEDS: AMIODARONE HCL 200 MG TAB PO SCH (09:22)
[2021-11-27] MEDS: COLCHICINE 0.6 MG CAP PO SCH (09:23)
[2021-11-27 12:00] VITALS: BP 147/89
[2021-11-27 15:55] VITALS: BP 125/72
[2021-11-27] MEDS: RIVAROXABAN 20 MG TAB PO SCH (17:30)
[2021-11-27] MEDS ORDERED: ASPI1CHW15 PO (17:50)
[2021-11-27] MEDS ORDERED: ATOR20TA50 PO (17:50)
[2021-11-27] MEDS ORDERED: AMOX875T3 PO (17:50)
[2021-11-27 18:47] LABS: Albumin 3.2 g/dL (3.4-5.0); Calcium 8.8 mg/dL (8.5-10.1); Potassium 3.7 mmol/L (3.5-5.1); Uric Acid 6.1 mg/dL (3.5-7.2)
[2021-11-27 18:50] LABS: BUN/Creatinine Ratio 20.8; Bilirubin, Total 0.8 mg/dL (0.2-1.0); Total Protein 6.5 g/dL (6.4-8.2)
[2021-11-27 18:57] LABS: Free T3 2.25 pg/mL (2.3-4.2); Free T4 (Free Thyroxine) 1.78 ng/dL (0.89-1.76)
[2021-11-27] MEDS: ATORVASTATIN 20 MG TAB PO SCH (21:58)
[2021-11-27 22:00] VITALS: BP 134/76
[2021-11-27] MEDS: AMOXICILLIN/CLAVUL 875 MG TAB PO SCH (22:17)
[2021-11-28] MEDS: ACCU-CHEK COMFORT CURVE STRIP VI SCH ×5 (00:20→23:39)
[2021-11-28] MEDS: InsuLIN REG 1unit/0.01ml Soln (100units/ml) SC SCH ×5 (06:00→23:41)
[2021-11-28 07:55] LABS: Hematocrit 40.1 % (41.0-53.0); Hemoglobin 13.6 g/dL (13.5-17.5); Mean Corpuscular Hemoglobin 30.2 pg (28.0-32.0); Mean Corpuscular Hgb Conc. 33.8 g/dL (32.0-36.0); Mean Corpuscular Volume 89.4 fL (80.0-100.0); Red Blood Cells 4.49 10^6/uL (4.5-5.90); Red Cell Distribution Width 15.8 % (11.8-14.3); White Blood Cell 13.6 10^3/uL (4.4-10.8)
[2021-11-28 08:00] LABS: Basophils % (manual) 0 (0.0-2.0); Blast Cells 0; Eosinophils % (manual) 0 (0-7); Metamyelocytes % 0; Myelocytes % 0; Reactive Lymphocytes 0
[2021-11-28 08:28] LABS: Anion Gap 8 (5-15); BUN/Creatinine Ratio 20.8; Blood Urea Nitrogen 32 mg/dL (7-18); Calcium 9.1 mg/dL (8.5-10.1); Carbon Dioxide 16 mmol/L (21-32); Chloride 115 mmol/L (98-107); GFR African American 58 mL/min; GFR Non-African American 48 mL/min; Glucose 88 mg/dL (74-106); Potassium 4.5 mmol/L (3.5-5.1); Sodium 139 mmol/L (136-145)
[2021-11-28 08:34] LABS: Band Neutrophils % (manual) 1; Lymphocytes % (manual) 17 (10.0-50.0); Monocytes % (manual) 10 (0-12); Promyelocytes % 1
[2021-11-28 08:42] VITALS: BP_SYST 124; BP_SYST 126; BP_DIAS 70; BP_DIAS 88
[2021-11-28] MEDS: COLCHICINE 0.6 MG CAP PO SCH (10:14)
[2021-11-28] MEDS: AMIODARONE HCL 200 MG TAB PO SCH (10:14)
[2021-11-28] MEDS: FAMOTIDINE 20 MG TAB PO SCH (10:15)
[2021-11-28] MEDS: AMOXICILLIN/CLAVUL 875 MG TAB PO SCH ×2 (10:49→23:30)
[2021-11-28 12:38] VITALS: BP 144/95
[2021-11-28 16:40] VITALS: BP 137/87
[2021-11-28] MEDS: RIVAROXABAN 20 MG TAB PO SCH (17:35)
[2021-11-28] MEDS ORDERED: HALOPERIDOL LACTATE 5 MG/ML INJ VIAL IM PRN (18:30)
[2021-11-28 22:00] VITALS: BP 145/95
[2021-11-28] MEDS: ATORVASTATIN 20 MG TAB PO SCH (23:30)
[2021-11-29 05:00] VITALS: BP 129/81
[2021-11-29] MEDS: InsuLIN REG 1unit/0.01ml Soln (100units/ml) SC SCH ×3 (05:32→18:00)
[2021-11-29] MEDS: ACCU-CHEK COMFORT CURVE STRIP VI SCH ×3 (05:32→18:00)
[2021-11-29 09:00] VITALS: BP 121/85
[2021-11-29] MEDS: COLCHICINE 0.6 MG CAP PO SCH (09:32)
[2021-11-29] MEDS: FAMOTIDINE 20 MG TAB PO SCH (09:33)
[2021-11-29] MEDS: AMIODARONE HCL 200 MG TAB PO SCH (09:33)
[2021-11-29] MEDS: ACETAMINOPHEN 325 MG TAB PO PRN (09:44)
[2021-11-29] MEDS: AMOXICILLIN/CLAVUL 875 MG TAB PO SCH (09:55)
[2021-11-29 13:00] VITALS: BP 112/78
[2021-11-29 16:55] VITALS: BP 138/79
[2021-11-29] MEDS: RIVAROXABAN 20 MG TAB PO SCH (18:00)
[2021-11-29 18:18] VITALS: BP 138/79
== END 2021-11-29 19:45 | disposition home or self-care (01) | DRG 871 ==
LOC: ER 08:09 → EDBD 08:09 → TELE 13:58 → TELE-WESTW 16:46
PROVIDERS: ADMIT Hospitalist; ATTEND Hospitalist
DX: A41.9 Sepsis, unspecified organism (principal); J18.9 Pneumonia, unspecified organism; G93.41 Metabolic encephalopathy; J96.01 Acute respiratory failure with hypoxia; I21.A1 Myocardial infarction type 2; N17.9 Acute kidney failure, unspecified; J44.1 Chronic obstructive pulmonary disease with (acute) exacerbation; N13.30 Unspecified hydronephrosis; E87.1 Hypo-osmolality and hyponatremia; I48.92 Unspecified atrial flutter; J44.0 Chronic obstructive pulmonary disease with (acute) lower respiratory infection; J98.11 Atelectasis; L03.119 Cellulitis of unspecified part of limb; I31.3 Pericardial effusion (noninflammatory); E11.65 Type 2 diabetes mellitus with hyperglycemia; E87.6 Hypokalemia; I48.0 Paroxysmal atrial fibrillation; E11.22 Type 2 diabetes mellitus with diabetic chronic kidney disease; E78.5 Hyperlipidemia, unspecified; R94.6 Abnormal results of thyroid function studies; Z20.822 Contact with and (suspected) exposure to COVID-19; E86.0 Dehydration; I13.10 Hypertensive heart and chronic kidney disease without heart failure, with stage 1 through stage 4 chronic kidney disease, or unspecified chronic kidney disease; I25.10 Atherosclerotic heart disease of native coronary artery without angina pectoris; M10.9 Gout, unspecified; N18.30 Chronic kidney disease, stage 3 unspecified; Z79.01 Long term (current) use of anticoagulants; Z86.73 Personal history of transient ischemic attack (TIA), and cerebral infarction without residual deficits; Z79.82 Long term (current) use of aspirin; Z79.899 Other long term (current) drug therapy; Z82.49 Family history of ischemic heart disease and other diseases of the circulatory system; Z90.49 Acquired absence of other specified parts of digestive tract
CPT/HCPCS: 36415; 36600; 70450; 70551; 71045; 74176; 76775; 80048; 80053; 80061; 80307; 80320; 81001; 82607; 82746; 82805; 82962; 83605; 83735; 83880; 84154; 84439; 84443; 84481; 84484; 84550; 85007; 85025; 85027; 86592; 87040; 87086; 93005; 93306; 93886; 95819; 96365; 96368; 96375; 97110; 97116; 97163; 97530; G0378; J0696; J1815; J2543; J3490; J7042

== ENCOUNTER 2023-03-19 09:50 | Emergency (ER) | payer OTHER, MEDICAID ==
[~2023-03-19] VITALS: Ht 172.7 cm; Wt 86.3 kg
[~2023-03-19 09:50] MED LIST changes: +AMOX875T3 PO; +ASPI-736 PO; +ATOR20TA50 PO; -CLON0.2T PO; -DILT60TA PO; -HYDR25TA5 PO; -LABE100T4 PO
[2023-03-19] MEDS ORDERED: dilTIAZem 25 MG/5 ML VIAL IV ONE ×2 (10:09→10:15)
[2023-03-19 10:30] LABS: Hematocrit 36.4 % (41.0-53.0); Hemoglobin 11.9 g/dL (13.5-17.5); Mean Corpuscular Hemoglobin 29.1 pg (28.0-32.0); Mean Corpuscular Hgb Conc. 32.7 g/dL (32.0-36.0); Mean Corpuscular Volume 89.1 fL (80.0-100.0); Red Blood Cells 4.09 10^6/uL (4.5-5.90); Red Cell Distribution Width 17.5 % (11.8-14.3); White Blood Cell 15.6 10^3/uL (4.4-10.8)
[2023-03-19] MEDS ORDERED: dilTIAZem 125mg/125ml BAG KIT 125 ML IV ONE (10:30)
[2023-03-19 10:48] LABS: Band Neutrophils % (manual) 0; Basophils % (manual) 0 (0.0-2.0); Blast Cells 0; Eosinophils % (manual) 0 (0-7); Metamyelocytes % 0; Myelocytes % 0; Promyelocytes % 0; Reactive Lymphocytes 0
[2023-03-19 10:59] LABS: INR 1.11 (0.9-1.15); Partial Thromboplastin Time 31.3 SEC (24.5-34.5)
[2023-03-19 11:05] LABS: Urine Bacteria NONE SEEN /hpf (None Seen); Urine Blood Negative /uL (Negative); Urine Specific Gravity 1.018 (1.001-1.035); Urine WBC 1 /hpf (0 - 3)
[2023-03-19 11:40] LABS: Potassium 3.6 mmol/L (3.5-5.1)
[2023-03-19 11:48] LABS: Albumin 3.6 g/dL (3.4-5.0); BUN/Creatinine Ratio 17.4 (10.0-20.0); Calcium 8.5 mg/dL (8.5-10.1); Magnesium 2.7 mg/dL (1.6-2.6); Total Protein 6.6 g/dL (6.4-8.2)
[2023-03-19 12:42] LABS: Lymphocytes % (manual) 11 (10.0-50.0); Monocytes % (manual) 17 (0-12)
[2023-03-19 18:00] VITALS: BP 144/77
== END 2023-03-19 13:54 | disposition short-term general hospital (02) ==
LOC: EDBD 09:50 → ER 09:50
DX: I48.91 Unspecified atrial fibrillation (principal); N17.9 Acute kidney failure, unspecified; R41.82 Altered mental status, unspecified; I10 Essential (primary) hypertension
CPT/HCPCS: 36415; 70450; 71045; 80053; 81001; 83735; 83880; 84484; 85007; 85027; 85610; 85730; 93005; 96365; 99291